=== PATIENT | male | born 1935 | race African-American/Black ===

== ENCOUNTER 2016-08-19 18:56 | Emergency (ER) | payer MEDICARE, MEDICAID ==
[~2016-08-19] VITALS: Ht 185.4 cm; Wt 106.6 kg
[~2016-08-19 18:56] MED LIST: KEFLEX500 MG ORAL; PREDNISONE20 MG ORAL; ZITHROMAX250 MG ORAL
[2016-08-19 19:25] VITALS: BP 165/83
[2016-08-19] MEDS ORDERED: Albuterol ud Inhalation HHN ONE (19:30)
[2016-08-19] MEDS ORDERED: PredniSONE 20mg tab ORAL ONE (19:30)
[2016-08-19] MEDS ORDERED: DuoNeb 0.5-3(2.5)mg/3ml neb HHN ONE (19:30)
[2016-08-19 19:51] LABS: EOSINOPHILS % (AUTO) 12.7 % (0.0-3.0); LYMPHOCYTES % (AUTO) 22.6 % (20.0-45.0); MEAN CORPUSCULAR HEMOGLOBIN 32.4 PG (27.0-31.0); MEAN CORPUSCULAR HGB CONC 34.1 G/DL (32.0-36.0); MEAN CORPUSCULAR VOLUME 95 FL (80-99); MEAN PLATELET VOLUME 6.4 FL (6.5-10.1); MONOCYTES % (AUTO) 9.5 % (1.0-10.0); NEUTROPHILS % (AUTO) 54.3 % (45.0-75.0); PLATELET COUNT 233 K/UL (150-450); RED BLOOD COUNT 3.71 M/UL (4.70-6.10); RED CELL DISTRIBUTION WIDTH 12.5 % (11.6-14.8)
[2016-08-19 20:11] LABS: ALANINE AMINOTRANSFERASE 19 U/L (3-41); ALBUMIN/GLOBULIN RATIO 1.3 (1.0-2.7); ANION GAP 16 (5-15); ASPARTATE AMINO TRANSFERASE 19 U/L (5-40); CALCIUM 9.4 mg/dL (8.6-10.2); CARBON DIOXIDE 22 mEQ/L (20-30); CHLORIDE 102 mEQ/L (98-107); HEMOLYSIS 8; POTASSIUM 4.3 mEQ/L (3.4-4.9); SODIUM 140 mEQ/L (135-145); TOTAL PROTEIN 6.7 g/dL (6.6-8.7)
[2016-08-19] MEDS ORDERED: ALBUTEROL SULF8.5 GM INH (20:19)
[2016-08-19] MEDS ORDERED: PREDNISONE20 MG ORAL (20:19)
[2016-08-19 20:40] VITALS: BP 148/80
--- NOTE | 2016-08-19 22:05 | Emergency Room Report ---
History of Present Illness General Chief Complaint: Upper Respiratory Illness Source: Patient Present Illness HPI Patient is a 80-year-old male who had a history of asthma. The patient presented for shortness of breath. Patient gradual onset of symptoms over the past 3 weeks. Patient had not had any improved the patient had not been any fevers. He had not been a having any productive cough the patient had previously been taking Advair as well as albuterol. He denied any chest pain or leg swelling. Patient denied any worsening with supine position. Allergies: Coded Allergies: AMLODIPINE (Verified Allergy, Mild, RASH, 06/18/09) ATORVASTATIN (Verified Allergy, Unknown, 06/20/09) Patient History Past Medical History: asthma Reviewed Nursing Documentation: PMH: Agreed, PSxH: Agreed Nursing Documentation-PMH Past Medical History: No History, Except For Hx Hypertension: Yes Hx Asthma: Yes Review of Systems All Other Systems: negative except mentioned in HPI Physical Exam Vital Signs Date Time Temp Pulse Resp B/P Pulse Ox O2 Delivery O2 Flow Rate FiO2 08/19/16 19:03 98.2 93 16 171/98 96 Room Air 08/19/16 19:39 21 Sp02 EP Interpretation: reviewed, normal General Appearance: normal inspection, well appearing, no apparent distress, alert, GCS 15 Head: atraumatic ENT: normal ENT inspection, hearing grossly normal, normal voice Neck: normal inspection, full range of motion, supple, no bony tend Respiratory: normal inspection, no retraction Cardiovascular #1: regular rate, rhythm, no edema Gastrointestinal: normal inspection, normal bowel sounds, non tender, soft, no guarding, no hernia Genitourinary: no CVA tenderness Musculoskeletal: normal inspection, back normal, normal range of motion Neurologic: normal inspection, alert, oriented x3, responsive, manufacturing process technician III-XII nml as tested, motor strength/tone normal, speech normal Psychiatric: normal inspection, judgement/insight normal, mood/affect normal Skin: normal inspection, normal color, no rash Medical Decision Making Diagnostic Impression: Primary Impression: Acute asthma exacerbation ER Course Patient presented for shortness of breath. Differential included but was not limited to anemia, pneumonia, pneumothorax, myocardial infarction, pericardial effusion, congestive heart failure, acidosis. Because of complexity of patient' s case laboratory testing and imaging studies were ordered. EKG interpreted by me showed normal sinus rhythm without acute ST or T wave changes. Laboratory testing was unremarkable. Patient given prescription for steroids. He was given breathing treatment in the emergency department with improvement. The patient is advised to follow up with primary care doctor in 1-2 days. Patient is advised to return if any worsening condition or if any changes in status that are concerning. Labs Test 08/19/16 19:30 White Blood Count 8.0 K/UL (4.8-10.8) Red Blood Count 3.71 M/UL (4.70-6.10) Hemoglobin 12.0 G/DL (14.2-18.0) Hematocrit 35.2 % (42.0-52.0) Mean Corpuscular Volume 95 FL (80-99) Mean Corpuscular Hemoglobin 32.4 PG (27.0-31.0) Mean Corpuscular Hemoglobin Concent 34.1 G/DL (32.0-36.0) Red Cell Distribution Width 12.5 % (11.6-14.8) Platelet Count 233 K/UL (150-450) Mean Platelet Volume 6.4 FL (6.5-10.1) Neutrophils (%) (Auto) 54.3 % (45.0-75.0) Lymphocytes (%) (Auto) 22.6 % (20.0-45.0) Monocytes (%) (Auto) 9.5 % (1.0-10.0) Eosinophils (%) (Auto) 12.7 % (0.0-3.0) Basophils (%) (Auto) 1.0 % (0.0-2.0) Sodium Level 140 mEQ/L (135-145) Potassium Level 4.3 mEQ/L (3.4-4.9) Chloride Level 102 mEQ/L (98-107) Carbon Dioxide Level 22 mEQ/L (20-30) Anion Gap 16 (5-15) Blood Urea Nitrogen 17 mg/dL (7-23) Creatinine 1.0 mg/dL (0.7-1.2) Estimat Glomerular Filtration Rate mL/min (>60) Glucose Level 90 mg/dL (74-106) Calcium Level 9.4 mg/dL (8.6-10.2) Total Bilirubin 0.3 mg/dL (0.0-1.2) Aspartate Amino Transf (AST/SGOT) 19 U/L (5-40) Alanine Aminotransferase (ALT/SGPT) 19 U/L (3-41) Alkaline Phosphatase 51 U/L (40-129) Pro-B-Type Natriuretic Peptide 98 pg/mL (0-450) Total Protein 6.7 g/dL (6.6-8.7) Albumin 3.9 g/dL (3.5-5.2) Globulin 2.8 g/dL Albumin/Globulin Ratio 1.3 (1.0-2.7) Last Vital Signs Date Time Temp Pulse Resp B/P Pulse Ox O2 Delivery O2 Flow Rate FiO2 08/19/16 20:40 98.4 80 16 148/80 100 Room Air 08/19/16 20:40 21 Status: improved Disposition: HOME, SELF-CARE Condition: Stable Scripts Albuterol Sulfate* (ALBUTEROL SULFATE MDI*) 8.5 Gm Hfa.aer.ad 2 PUFF INH Q6H, #1 INH 0 Refills Prov: Cheng Kirby 08/19/16 Prednisone* (PREDNISONE*) 20 Mg Tablet 40 MG ORAL DAILY, #10 TAB Prov: Cheng Kirby 08/19/16 Referrals: RAFAEL OQUENDO (PCP) Patient Instructions: Asthma, Adult Cheng Kirby Aug 19, 2016 22:05
--- NOTE | 2016-08-20 13:34 | Diagnostic Imaging Report ---
Indication: Shortness of breath Technique: Single portable AP view of the chest. Findings: Comparison: 10/11/2014 Pleural-based linear density again noted in the lateral aspect of the right lung base. The bones and extra pulmonary soft tissues, cardiomediastinal silhouette, pulmonary vasculature and parenchyma, and pleural surfaces remain otherwise unremarkable. IMPRESSION: Persistent subsegmental atelectasis versus scarring right lung base Otherwise negative portable AP chest, unchanged.
== END 2016-08-19 20:40 | disposition home or self-care (01) ==
LOC: EMR 19:26
DX: J45.901 Unspecified asthma with (acute) exacerbation (principal); Z88.8 Allergy status to other drugs, medicaments and biological substances; I10 Essential (primary) hypertension
CPT/HCPCS: 36415; 71010; 80053; 83880; 85025; 87040; 93005; 94640; 94664; 99284; J7620

== ENCOUNTER 2018-05-06 12:47 | Outpatient (CLI) | payer MEDICARE, MEDICAID ==
[~2018-05-06 12:47] MED LIST changes: +ALBUTEROL SULF8.5 GM INH
--- NOTE | 2018-05-07 15:49 | Diagnostic Imaging Report ---
Indication: Dyspnea Comparison: 08/19/2016 2 views of the chest obtained. Findings: Lungs are clear. Heart size is normal. The aorta is mildly ectatic. Bones are osteopenic. There are probable old rib fractures on the right. IMPRESSION: No acute disease
== END 2018-05-06 14:47 | disposition home or self-care (01) ==
LOC: RAD 12:47
DX: Z01.818 Encounter for other preprocedural examination (principal); I10 Essential (primary) hypertension; M85.80 Other specified disorders of bone density and structure, unspecified site
CPT/HCPCS: 71046

== ENCOUNTER 2018-05-17 05:18 | Inpatient (IN) | payer MEDICARE, MEDICAID ==
[~2018-05-17] VITALS: Ht 185.4 cm; Wt 100.0 kg
[2018-05-17] VITALS (15 sets, daily range): BP systolic 113–158; BP diastolic 65–114
[2018-05-17] MEDS ORDERED: oxyCONTIN 20mg tab ORAL ONE (06:00)
[2018-05-17] MEDS ORDERED: celeBREX 200mg Cap **SURGERY PATIENTS ONLY ORAL ONE (06:00)
[2018-05-17] MEDS ORDERED: ceFAZolin 1gm IVPB IVPB ONE ×2 (06:00)
[2018-05-17] MEDS ORDERED: DILTIAZEM 24HR120 M2 PO (06:40)
[2018-05-17] MEDS ORDERED: AVAPRO300 MG ORAL (06:40)
[2018-05-17] MEDS ORDERED: ELIQUIS5 MG PO (06:40)
[2018-05-17] MEDS ORDERED: AVODART0.5 MG ORAL (06:40)
[2018-05-17] MEDS ORDERED: MONTELUKAST SOD10 MG ORAL (06:40)
[2018-05-17] MEDS ORDERED: SYMBICORT 16010.2 G1 IH (06:40)
[2018-05-17] MEDS ORDERED: TAMSULOSIN HCL0.4 MG ORAL (06:40)
[2018-05-17] MEDS ORDERED: fentaNYL 100 mcg/2 mL IV ONE (06:51)
[2018-05-17] MEDS ORDERED: Midazolam 2mg/2ml Inj ONE (06:51)
--- NOTE | 2018-05-17 06:54 | Pre-Procedure Note/Attestation ---
Pre-Procedure Note/Attestation Complete Prior to Procedure Planned Procedure: right Procedure Narrative: rt total knee arthroplasty Indications for Procedure Pre-Operative Diagnosis: rt knee arthritis Attestation I attest that I discussed the nature of the procedure; its benefits; risks and complications; and alternatives (and the risks and benefits of such alternatives ), prior to the procedure, with the patient (or the patient's legal retention representative). I attest that, if there was a reasonable possibility of needing a blood transfusion, the patient (or the patient's legal retention representative) was given the [facility] standardized written summary, pursuant to the Michael Gray Blood Safety Act ([place] Health and Safety Code # 1645, as amended). I attest that I re-evaluated the patient just prior to the surgery and that there has been no change in the patient's H&P, except as documented below: none Ross Enriquez MD May 17, 2018 06:54
[2018-05-17] MEDS ORDERED: Bacitracin 50000 Units Vial ONE (07:03)
[2018-05-17] MEDS ORDERED: NeoSporin Gu Irrig 1ml Amp IRRIG ONE (07:03)
[2018-05-17] MEDS ORDERED: Lidocaine 1% MPF 10mg/ml 5ml ONE (07:10)
[2018-05-17] MEDS ORDERED: Propofol 200mg/20ml IV ONE (07:10)
[2018-05-17] MEDS ORDERED: EPINEPHrine 1mg/1ml Amp ONE (07:12)
[2018-05-17] MEDS ORDERED: Tranexamic Acid 1,000 MG in NS 55 ML IV ONE (07:15)
[2018-05-17] MEDS ORDERED: Bupivacaine 0.5% 10ml INJ ONE (07:17)
[2018-05-17] MEDS ORDERED: LR 1000ml ONE (07:40)
[2018-05-17] MEDS ORDERED: NS Irrig 1000ml ONE (07:40)
[2018-05-17] MEDS ORDERED: Sterile Water Irrig 1000ml IRRIG ONE (07:40)
[2018-05-17] MEDS ORDERED: Sodium Chloride 10ml vial INJ ONE (08:32)
[2018-05-17] MEDS ORDERED: ePHEDrine 50mg/ml Inj ONE (08:32)
[2018-05-17] MEDS ORDERED: DiphenhydrAMINE 50mg/ml Inj IVP PRN (09:00)
[2018-05-17] MEDS ORDERED: Morphine Sulfate 2mg/ml Inj(IV/IM USE ONLY) IVP PRN (09:00)
[2018-05-17] MEDS ORDERED: LR 1000ml 1,000 ML IVLG SCH (09:00)
[2018-05-17] MEDS ORDERED: Ketorolac 30mg Inj IV PRN (09:00)
--- NOTE | 2018-05-17 09:00 | Anethesia Preoperative Eval ---
Anesthesia Pre-op PMH/ROS General Date of Evaluation: May 17, 2018 Time of Evaluation: 07:20 Anesthesiologist: Raza ASA Score: ASA 2 Mallampati Score Class I : Soft palate, uvula, fauces, pillars visible Class II: Soft palate, uvula, fauces visible Class III: Soft palate, base of uvula visible Class IV: Only hard plate visible Mallampati Classification: Class II Surgeon: Mina Diagnosis: R knee DJD Surgical Procedure: R knee arthroplasty Anesthesia History: none Family History: no anesthesia problems Allergies: Coded Allergies: ATORVASTATIN (Verified Allergy, Severe, 05/17/18) SKIN RASH AMLODIPINE (Verified Allergy, Mild, RASH, 06/18/09) Medications: see eMAR Patient NPO?: Yes NPO Date: May 16, 2018 NPO Time: 2199 Past Medical History Cardiovascular: Reports: HTN; Denies: CAD, NC, valve dz, arrhythmia, other Pulmonary: Reports: asthma - mild stable on inhalers; Denies: COPD, CHAUNCEY, other Gastrointestinal/Genitourinary: Reports: GERD; Denies: CRI, ESRD, other Neurologic/Psychiatric: Denies: dementia, CVA, depression/anxiety, TIA, other Endocrine: Denies: DM, hypothyroidism, steroids, other HEENT: Denies: cataract (L), cataract (R), glaucoma, [place] (L), [place] (R), other Hematology/Immune: Denies: anemia, DVT, bleeding disorder, other Musculoskeletal/Integumentary: Reports: DJD; Denies: OA, RA, DDD, edema, other PMH Narrative: as above PSxH Narrative: L knee arthroplasty, hernia repair Anesthesia Pre-op Phys. Exam Physician Exam Last Vital Signs Date Time Temp Pulse Resp B/P (MAP) Pulse Ox O2 Delivery O2 Flow Rate FiO2 05/17/18 07:06 97.8 73 20 158/84 (108) 99 05/17/18 06:19 Room Air Constitutional: NAD Neurologic: CN 2-12 intact Cardiovascular: RRR, no M/R/G Gastrointestinal: S/NT/ND Airway Exam Mallampati Score: Class II MO: limited Neck: stiff ROM: limited Teeth: missing Dentures: no upper, no lower Anesthesia Pre-op A/P Labs Coagulation Test 05/17/18 06:15 Prothrombin Time 10.7 SEC (9.30-11.50) Prothromb Time International Ratio 1.0 (0.9-1.1) See chart for rest of the results. Studies Pre-op Studies: EKG - Sinus arrhytmia Risk Assessment & Plan Assessment: ASA 2 Plan: R femoral nerve block for post op pain control, SAB considering length of the procedure mild GA with LMA would be the appropriate level of sedation. Status Change Before Surgery: No Pre-Antibiotics Drug: Ancef 2gr. Given Within 1 Hr of Incision: Yes Time Given: 08:20 Washington Person MD May 17, 2018 09:00
--- NOTE | 2018-05-17 10:28 | Brief Operative Note ---
Immediate Post Operative Note Operative Note Chief Complaint: Rt knee arthritis Pre-op Diagnosis: rt knee arthritis Procedure: rt total knee arthroplasty Post-op Diagnosis: same as pre-op Findings: consistent w/pre-op dx studies Surgeon: md deanna Academic Services Professional: jackson mcarthur Anesthesiologist: md jose Anesthesia: general Specimen: yes Complications: none Condition: stable Fluids: ns Estimated Blood Loss: minimal Drains: none Implant(s) used?: Yes - Candida Escobar May 17, 2018 10:28
--- NOTE | 2018-05-17 10:39 | Immediate Post-Op Evaluation ---
Immediate Post-Op Evalulation Immediate Post-Op Evalulation Procedure: R total knee arthroplasty Date of Evaluation: May 17, 2018 Time of Evaluation: 10:38 IV Fluids: 1800 Blood Products: none Estimated Blood Loss: 150 Urinary Output: 150 Blood Pressure Systolic: 122 Blood Pressure Diastolic: 67 Pulse Rate: 65 Respiratory Rate: 20 O2 Sat by Pulse Oximetry: 98 Temperature (Fahrenheit): 97.7 Pain Score (1-10): 1 Nausea: No Vomiting: No Complications none Patient Status: reacts, patent, none Hydration Status: adequate Washington Person MD May 17, 2018 10:39
--- NOTE | 2018-05-17 11:45 | NUR ---
NURSE NOTES: Patient arrived to unit at 1130 am via bed in supine position, O2 3LNC, no respiratory distress. IVF LR infusing to gravity to LH, site asymptomatic. Patient alert, oriented x4, calm. Mcarthur patent in place/draining to gravity. Right lower extremity, eleanor hose in place, dressing clean/dry/intact, ice pack to right knee. Left SCD on. No complains of pain/SOB/NV at this time. IS ordered. Will continue to assess.
--- NOTE | 2018-05-17 12:00 | NUR ---
RESPIRATORY NOTE: IS left bedside. patient is sleeping and is on nasal cannula @2L/min 28%. notified Thiago PIPER.
--- NOTE | 2018-05-17 12:03 | Diagnostic Imaging Report ---
Indication: Status post right total knee replacement Comparison: None Findings: Cemented total knee arthroplasty demonstrated. Soft tissue swelling and air about the surgical site noted. Alignment and position of the prosthesis is unremarkable. IMPRESSION: Status post right total knee arthroplasty
[2018-05-17] MEDS ORDERED: Albuterol 90mcg Inhaler 8gm INH PRN (13:00)
[2018-05-17] MEDS ORDERED: Milk of Magnesia 30ml Ud ORAL PRN ×2 (13:00→19:00)
[2018-05-17] MEDS ORDERED: HYDROcodone/Acetamin 7.5/325 tab ORAL PRN ×2 (13:00→21:00)
[2018-05-17] MEDS ORDERED: HYDROcodone/Acetamin 5/325 tab ORAL PRN (13:00)
[2018-05-17] MEDS ORDERED: HYDROmorphone 1mg/ml Carpuject SUBQ PRN ×3 (13:00→19:00)
[2018-05-17] MEDS ORDERED: D5 1/2NS w/KCl 20mEq 1,000 ML IV SCH (13:30)
[2018-05-17] MEDS: Docusate 100mg cap ORAL SCH ×2 (13:59→17:33)
--- NOTE | 2018-05-17 15:55 | NUR ---
CASE MANAGEMENT: REVIEW 82/M BIBA DIRECT ADMIT FROM HOME CC: RIGHT KNEE ARTHRITIS SI: RIGHT KNEE ARTHRITIS RIGHT TOTAL KNEE ARTHROPLASTY 05/17 T 97.0 HR 69 RR 20 BP 158/84 SAT 100% SIMPLE MASK 6.0 PT 10.7 INR 1.0 IS: GABAPENTIN PO X1 OXYCONTIN PO X1 CELEBREX PO X1 VERSED PO X1 FENTANYL IV X1 ANCEF IV X1 LACTATED RINGER'S IV X1 INTERQUAL CRITERIA MET: PATIENT ADMITTED TO MED/SURG UNIT 05/17/2018 DCP: PATIENT IS FROM HOME
[2018-05-17] MEDS ORDERED: ceFAZolin sod 1 GM in D5W 55 ML IV SCH (16:00)
--- NOTE | 2018-05-17 16:30 | NUR ---
NURSE NOTES: Patient vitals completed every 30 mins x2, every 1 hour x1, then every 4 hours. Vitals stable. Patient alert, oriented x4, pleasant. O2 saturations on RA 98%, oxygen 3LNC off, but remains at the bedside. Patient denies NV, pain. CPM at 60 degrees. RLE warm, CMS+, denies numbness or tingling, able to wiggle toes, capillary refill <3 seconds. Mcarthur draining yellow clear urine to gravity. IVF D5.45 NS with 20 meq KCL infusing to left hand at 75 ml/hr, Ancef IVPB administered as ordered, no reaction. Patient tolerating oral liquids, diet advanced to regular. Will continue to assess.
--- NOTE | 2018-05-17 17:00 | NUR ---
NURSE NOTES: Per Dr. Olivas, transfer patient to TELE for monitoring. Parameters for Avapro and Cardiazem hold if SBP <110 mmHg. Parameters for Cardiazem hold if HR <55 bpm. Call surgeon for clarification on Eliquis and Lovenox. Will call Dr. Enriquez for further orders.
--- NOTE | 2018-05-17 17:08 | Cardiac Electrophysiology PN ---
Subjective Subjective [id number] Objective Last 24 Hour Vital Signs Date Time Temp Pulse Resp B/P (MAP) Pulse Ox O2 Delivery O2 Flow Rate FiO2 05/17/18 11:15 97.2 63 20 131/80 100 Nasal Cannula 3 05/17/18 11:10 65 18 125/79 100 Nasal Cannula 3 05/17/18 11:05 69 17 113/81 100 Nasal Cannula 3 05/17/18 10:50 65 19 120/79 100 Nasal Cannula 3 05/17/18 10:45 66 22 121/78 100 Simple Mask 6 05/17/18 10:40 70 17 124/74 100 Simple Mask 6 05/17/18 10:39 65 20 98 05/17/18 10:35 97.0 69 20 122/75 100 Simple Mask 6 05/17/18 07:06 97.8 73 20 158/84 (108) 99 05/17/18 06:19 Room Air Laboratory Tests Test 05/17/18 06:15 Prothrombin Time 10.7 SEC (9.30-11.50) Prothromb Time International Ratio 1.0 (0.9-1.1) Jaylen Lind MD May 17, 2018 17:08
--- NOTE | 2018-05-17 17:50 | NUR ---
NURSE NOTES: Spoke with Dr. Enriquez regarding clarification on Eliquis and Lovenox, instructed to call Dr. Saravia for further orders. Will follow up with Dr. Saravia.
[2018-05-17] MEDS ORDERED: Eliquis 2.5mg tablet ORAL SCH (18:00)
--- NOTE | 2018-05-17 18:05 | NUR ---
NURSE NOTES: Spoke with Dr. Saravia, orders to discontinue Eliquis, keep Lovenox as ordered and labs (CBC/CMP) for tomorrow 05/18/2018, morning. Orders placed. Will endorse to TELE with transfer/report.
--- NOTE | 2018-05-17 18:45 | NUR ---
NURSE NOTES: Patient transferred to [facility] 210-2 via bed with all belongings, CPM, RLE brace, SCD, chart, labels, IVF (D5.45 NS with 20 MEQ KCL) x2 bags, Ancef IVPB x1 bag. Report given to Renee PIPER on 2E. Patient alert, oriented x4, aware of transfer, all belongings reviewed with Renee PIPER. Tolerating clear liquids, total oral intake 720 mls. Mcarthur draining to gravity, (emptied 950 ml yellow clear urine prior to transfer) IVF in place as ordered, to left hand, site asymptomatic. Right knee dressing clean, dry, intact, ice pack in place. LLE SCD on. Patient on RA. Cough noted with clear sputum, encouraged IS. Vitals stable. Patient remains safe.
[2018-05-17] MEDS: D5 1/2NS w/KCl 20mEq 1,000 ML IV SCH ×2 (19:00→19:49)
--- NOTE | 2018-05-17 19:00 | Consultation ---
DATE OF CONSULTATION: 05/17/2018 CARDIOLOGY CONSULTATION CONSULTING PHYSICIAN: Jaylen Lind M.D. REFERRING PHYSICIAN: Nikunj Saravia M.D. REASON FOR CONSULTATION: Bradycardia and the patient with history of atrial fibrillation. HISTORY OF PRESENT ILLNESS: The patient is an 82-year-old gentleman with history of hypertension, paroxysmal atrial fibrillation, on Eliquis as an outpatient, who was admitted as an outpatient for right knee arthritis and underwent right total knee arthroplasty by Dr. Enriquez. Reportedly, the patient has bradycardic episodes with heart rate down to 40s. Cardiology consultation was obtained for further evaluation and management. At the time of my evaluation, the patient denies any chest pain, palpitation, or shortness of breath. REVIEW OF SYSTEMS: Negative other than what was mentioned in history of present illness. PAST MEDICAL HISTORY: 1. Hypertension. 2. Paroxysmal atrial fibrillation. 3. Degenerative joint disease. MEDICATIONS: At home, albuterol, Eliquis 5 mg b.i.d., Symbicort, Cardizem CD 120 mg daily, Avodart, Avapro 300 mg daily, and Flomax. PHYSICAL EXAMINATION: VITAL SIGNS: Show blood pressure is 131/80, pulse 63, respirations 18, and temperature 97.2. HEAD AND NECK: Showed no JVD. LUNGS: Clear. CARDIOVASCULAR: Shows regular S1 and S2 with no gallop or murmur. ABDOMEN: Soft. EXTREMITIES: Status post right knee surgery. LABORATORY AND DIAGNOSTIC DATA: His laboratories show INR of 1. His BUN is 14, creatinine is 1, sodium 141, potassium 4.7. White count is 5.4, hemoglobin 12.7, hematocrit 39.1. His 12-lead EKG showed sinus rhythm, rate of 74, first-degree AV block. ASSESSMENT AND PLAN: 1. History of paroxysmal atrial fibrillation. Currently, we will get an EKG and transfer to telemetry for watching in view of risk of postop atrial fibrillation. The patient would be resumed on Cardizem CD 120 mg daily as well as Eliquis 5 mg b.i.d. if okay from surgical perspective. 2. Hypertension. Continue Cardizem and Avapro 300 mg daily. 3. Status post right knee arthroplasty. 4. Benign prostatic hypertrophy, on Proscar. 5. COPD, on Symbicort. Thank you very much, Dr. Saravia, for allowing me to participate in the care of this patient. Please do not hesitate to contact me for any questions regarding my evaluation. Jaylen Lind M.D. DR: Corbin JOB#: [id number] CC:
--- NOTE | 2018-05-17 19:00 | NUR ---
NURSE NOTES: Patient transferred from [facility], patient arrived to floor at 1835 in stable condition. Belonging checked with VERONIQUE Clayton. Report given by Matilde Patient is resting in bed, no signs and symptoms of acute distress at this time. Breathing unlabored in room air. Ice Pack on the right knee.Bed locked and in low position, side rails up X2, call light and bed side table within reach. Will continue to monitor and follow plan of care
--- NOTE | 2018-05-17 19:48 | NUR ---
NURSE NOTES: Received report from VERONIQUE Duran. Patient is awake lying semi-monte's; resting comfortably. No signs of acute distress noted; denies pain at this time. AOx4; able to make needs known. Checked IV site, lines, and IV rate; patent and running. No erythema, bleeding, or infiltration noted. Right leg immobilizer in place and KERRY hose with ice pack applied. Mcarthur catheter draining well to gravity. Bed at lowest position, brakes on, siderails up x3. Call light within reach. Will continue to monitor.
[2018-05-17] MEDS ORDERED: Tamsulosin 0.4mg cap ORAL SCH (21:00)
[2018-05-17] MEDS ORDERED: Enoxaparin 30mg Inj SUBQ SCH (21:00)
[2018-05-17] MEDS: Enoxaparin 30mg Inj SUBQ SCH (21:14)
[2018-05-17] MEDS: Tamsulosin 0.4mg cap ORAL SCH (21:14)
--- NOTE | 2018-05-17 21:15 | Operative Note - Dictated ---
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 PROCEDURE: Right total knee arthroplasty using a [place] triathlon system, size 8 femur, size 7 tibial insert, 9 mm ultra cross-linked tibial insert, and 11 mm x 39 mm all poly patellar component. SURGEON: Ross Enriquez M.D. MASTER COOK: Candida See PA-C. ANESTHESIOLOGIST: [place] Person M.D. ANESTHESIA: Spinal anesthesia. ESTIMATED BLOOD LOSS: Less than 100 mL. TOURNIQUET TIME: 84 minutes. COMPLICATIONS: None. BRIEF HISTORY: The patient is a very pleasant 82-year-old gentleman who has had ongoing right knee pain. He had a left total knee arthroplasty done approximately seven to eight years ago and he did very well with it. He has had ongoing right knee pain, decreased range of motion, stiffness, and inability to walk more than a block. He has been treated with injections and physical therapy and he continues to be symptomatic. After full discussion of risks and benefits of surgery including infection, bleeding, neurovascular complication, possibility of DVT, possibility of PE, possibility of loss of motion, possible infection requiring resection of prosthesis and further surgery, possible wound complications, need for further surgery, possibility of other issues that may arise that are now foreseen, he opted for surgical treatment as described above. OPERATIVE PROCEDURE: The patient was brought to the operating table and was placed supine. All pressure points were well padded. Spinal anesthesia was induced and the right knee was prepped and draped in the usual sterile fashion. The right leg was then exsanguinated and tourniquet was inflated to 275 mmHg. Standard anterior approach to the knee was undertaken. Medial parapatellar arthrotomy was performed. The patella was everted. Deep fibers of the MCL were released. The knee was then flexed and the fat pad was removed. The ACL and PCL were removed. At this point, entry was gained into the intramedullary aspect of the femur and the intramedullary guide was placed in. The patient did have a flexion contracture of about 7 degrees prior to surgery. Therefore, an optional extra 2 mm of distal femoral cut was performed to regain extension. The distal cut was completed and sizing of the femur was performed, size 8 appeared to be the right size. The femur was placed in about 3 degrees external rotation, judging from intercondylar axis. It should be noted that there was a wear on the lateral side and care was given not to internally rotate the prosthesis. Once the guide was placed in 3 degrees external rotation, the cutting block was applied. The anterior, posterior, and chamfer cuts were performed without any complications. At this point, a trial femur was applied and appeared to fit perfectly. This was slightly lateralized and peg holes were drilled. At this point, care was given to the tibial side. The extramedullary guide was used. The anterior crest of the tibia was palpated and marked. At this point, intramedullary guide was then applied and the slope was recreated and 2 mm was taken off the most involved side, which was the lateral side. The patellar tendon was protected and posterior medial and lateral structures were protected with retractors and the tibial cut was performed without any complication. At this point, the flexion-extension gap was checked and appeared to be slightly tight on the lateral side. Therefore, a limited IT band release was performed, which balanced the knee. At this point, the flexion-extension gap was perfect and equal and there was great stability. At this point, the tibial sizing was performed and size 7 tibia appeared to be the right size 8. It was placed in about 3 degrees external rotation and the tibial PEG was then punched without any complications. Once this was completed, care was given to the patellar component. The patella was everted and measured 24 mm. At this point, a standard patellar cut was performed without any complication. The remaining patella was 14 mm. At this point, the patellar component PEG holes were then drilled and 39 mm patella appeared to be the right size. The 39 mm patella was then placed in with excellent fit. At this point, all trial components including tibial component, femoral component as well as patellar components were applied and a 9 mm trial poly insert was applied. The entire construct was reduced. There was full extension and 130 degrees of flexion. There was excellent stability to varus and valgus stressing at 0, 30 degrees, 45 degrees, and 90 degrees. The knee was balanced. At this point, all wounds were thoroughly irrigated using copious amount of fluid. All excess bone and posterior osteophytes were removed. The trial components were removed and knee was thoroughly irrigated. At this point, cement was mixed and the tibial component, femoral component, and patellar components were all cemented without any complication and all excess cement was removed. Once this was completed, a 9 mm insert was placed and the femoral and tibial components were compressed. The compression was applied on the patella until the cement was hardened. Once cement had hardened, compression was removed from patella as well as the femoral and tibial component and trialing was performed. There was excellent range of motion and stability as described previously and there was full extension and full flexion. At this point, a trial component of tibial insert was removed and the tibial tray was thoroughly irrigated. All excess cement and bone fragments were removed. Simpulse irrigation was used and subsequently, a 9 mm ultra cross-linked polyethylene was then locked in without complication. The entire construct was reduced and range of motion, stability, and patellofemoral tracking was rechecked and appeared to be perfect. At this point, the tourniquet was deflated. There was minimal bleeding. The extensor mechanism was closed using #1 Vicryl suture. The subcutaneous tissue was closed using 2-0 Vicryl suture and skin was closed using 3-0 Monocryl suture. Dermabond was applied and sterile dressing was applied and the patient was taken to the recovery room in stable condition. All lap counts and instrument counts were correct. Ross Enriquez M.D. DR: ELLA JOB#: [id number] CC: BRIAN
--- NOTE | 2018-05-17 22:15 | History and Physical Report ---
DATE OF ADMISSION: 05/17/2018 HISTORY OF PRESENT ILLNESS: The patient is a very pleasant 82-year-old gentleman who was admitted by Dr. Enriquez today and underwent right total knee arthroplasty for right knee arthritis. The patient is seen postoperatively. The patient prior to the procedure had heart rate in the 40s, asymptomatic, no chest pain, no shortness of breath. He does has a history of atrial fibrillation as well and he is on medications. The patient is seen postoperative day. Denies any chest pain. No shortness of breath. Denies any dizziness. No abdominal pain. No urinary symptoms. PAST MEDICAL HISTORY: Includes a history of hypertension, history of hyperlipidemia, history of BPH, history of asthma, history of previous knee surgery in 2009, history of influenza, history of asthmatic bronchitis, history of osteoarthritis, history of paroxysmal AFib, history of T11-T12 laminectomy by Dr. Mae secondary to diffuse disc bulge, and history of a CVA. ALLERGIES: Questionable allergy to statin therapy. MEDICATIONS: Please see his reconciled med list. SOCIAL HISTORY: He is a previous smoker, has not smoked in many years. He drinks alcohol socially. Denies any drug use. FAMILY HISTORY: Noncontributory. REVIEW OF SYSTEMS: Twelve-point review of systems reviewed negative except for above. PHYSICAL EXAMINATION: GENERAL: He is well developed, well nourished, currently in no apparent distress. VITAL SIGNS: Revealed a temperature 97.3, pulse 50, blood pressure 118/68, respirations 17, pulse ox 99 to 100% room air. HEENT: Head is normocephalic, atraumatic. Pupils are equal, reactive to light. Extraocular muscles are intact. Eyes are anicteric. NECK: Supple. No JVP. LUNGS: Clear. HEART: Regular. ABDOMEN: Soft. Positive bowel sounds. EXTREMITIES: No clubbing, cyanosis, or edema. Right knee dressing is clean. ASSESSMENT AND PLAN: The patient is a pleasant 82-year-old gentleman who underwent right knee arthroplasty. He does have a history of AFib, paroxysmal. His heart rate was in the 40s apparently preoperatively. Appears to be stable. The patient had his surgery. The patient will be placed on a monitored bed. I have asked Cardiology consultation from Dr. Lind to see him for further evaluation. We will continue his medications from home. The patient should be on anticoagulation. Currently on Lovenox. Consider switching back to Eliquis if okay with Dr. Enriquez. The patient should be on DVT and ulcer prophylaxes. Nikunj Saravia M.D. DR: ANDREWS JOB#: [id number] CC:
[2018-05-18] VITALS: BP 145/78
[2018-05-18] MEDS ORDERED: ceFAZolin sod 1 GM in D5W 55 ML IV SCH ×2
[2018-05-18 04:00] VITALS: BP 133/65
[2018-05-18] MEDS: HYDROcodone/Acetamin 5/325 tab ORAL PRN ×2 (04:18→11:04)
[2018-05-18] MEDS: D5 1/2NS w/KCl 20mEq 1,000 ML IV SCH ×2 (05:47→21:48)
--- NOTE | 2018-05-18 07:00 | NUR ---
NURSE NOTES: D/C'ed Mcarthur catheter as per MD order.
[2018-05-18 07:21] LABS: BASOPHILS % (AUTO) 0.4 % (0.0-2.0); EOSINOPHILS % (AUTO) 0.5 % (0.0-3.0); HEMATOCRIT 31.4 % (42.0-52.0); HEMOGLOBIN 10.9 G/DL (14.2-18.0); MEAN CORPUSCULAR VOLUME 92 FL (80-99); MONOCYTES % (AUTO) 10.2 % (1.0-10.0); NEUTROPHILS % (AUTO) 79.9 % (45.0-75.0); PLATELET COUNT 156 K/UL (150-450); RED CELL DISTRIBUTION WIDTH 11.6 % (11.6-14.8); WHITE BLOOD COUNT 8.8 K/UL (4.8-10.8)
--- NOTE | 2018-05-18 07:47 | NUR ---
HAND-OFF: Report given to VERONIQUE Siu. Patient is awake lying high-monte's eating breakfast; resting comfortably. In stable condition.
--- NOTE | 2018-05-18 07:50 | NUR ---
NURSE NOTES: Received patient from VERONIQUE Nguyen in bed eating breakfast, denies any pain. No s/s of acute distress, no SOB. Noted right leg is immobilized. Bed is in lowest position and locked position for safety. Call light is within reach. Will continue with the plan of care.
[2018-05-18 08:00] VITALS: BP 127/73
[2018-05-18 08:01] LABS: ALANINE AMINOTRANSFERASE 18 U/L (12-78); ALBUMIN 2.7 G/DL (3.4-5.0); ALBUMIN/GLOBULIN RATIO 0.9 (1.0-2.7); ALKALINE PHOSPHATASE 48 U/L (46-116); ANION GAP 6 mmol/L (5-15); ASPARTATE AMINO TRANSFERASE 15 U/L (15-37); BILIRUBIN,TOTAL 0.6 MG/DL (0.2-1.0); BLOOD UREA NITROGEN 12 mg/dL (7-18); CALCIUM 8.3 MG/DL (8.5-10.1); CARBON DIOXIDE 25 MMOL/L (21-32); CHLORIDE 107 MMOL/L (98-107); CREATININE 0.8 MG/DL (0.55-1.30); POTASSIUM 3.8 MMOL/L (3.5-5.1); SODIUM 138 MMOL/L (136-145)
--- NOTE | 2018-05-18 08:18 | Orthopedic Progress Note ---
Orthopedic - Progress Note Subjective Symptoms: improved, other - moved to the [facility] to monitor HR. cardiology called Objective Laboratory Tests Test 05/18/18 05:55 White Blood Count 8.8 K/UL (4.8-10.8) Red Blood Count 3.40 M/UL (4.70-6.10) L Hemoglobin 10.9 G/DL (14.2-18.0) L Hematocrit 31.4 % (42.0-52.0) L Mean Corpuscular Volume 92 FL (80-99) Mean Corpuscular Hemoglobin 31.9 PG (27.0-31.0) H Mean Corpuscular Hemoglobin Concent 34.6 G/DL (32.0-36.0) Red Cell Distribution Width 11.6 % (11.6-14.8) Platelet Count 156 K/UL (150-450) Mean Platelet Volume 5.7 FL (6.5-10.1) L Neutrophils (%) (Auto) 79.9 % (45.0-75.0) H Lymphocytes (%) (Auto) 9.0 % (20.0-45.0) L Monocytes (%) (Auto) 10.2 % (1.0-10.0) H Eosinophils (%) (Auto) 0.5 % (0.0-3.0) Basophils (%) (Auto) 0.4 % (0.0-2.0) Sodium Level 138 MMOL/L (136-145) Potassium Level 3.8 MMOL/L (3.5-5.1) Chloride Level 107 MMOL/L (98-107) Carbon Dioxide Level 25 MMOL/L (21-32) Anion Gap 6 mmol/L (5-15) Blood Urea Nitrogen 12 mg/dL (7-18) Creatinine 0.8 MG/DL (0.55-1.30) Estimat Glomerular Filtration Rate mL/min (>60) Glucose Level 113 MG/DL (74-106) H Calcium Level 8.3 MG/DL (8.5-10.1) L Total Bilirubin 0.6 MG/DL (0.2-1.0) Aspartate Amino Transf (AST/SGOT) 15 U/L (15-37) Alanine Aminotransferase (ALT/SGPT) 18 U/L (12-78) Alkaline Phosphatase 48 U/L (46-116) Total Protein 5.7 G/DL (6.4-8.2) L Albumin 2.7 G/DL (3.4-5.0) L Globulin 3.0 g/dL Albumin/Globulin Ratio 0.9 (1.0-2.7) L Last 24 Hour Vital Signs Date Time Temp Pulse Resp B/P (MAP) Pulse Ox O2 Delivery O2 Flow Rate FiO2 05/18/18 04:00 98.2 87 18 133/65 (87) 97 05/18/18 04:00 82 05/18/18 00:00 80 05/18/18 00:00 98.9 83 18 145/78 (100) 98 05/17/18 21:00 Room Air 05/17/18 20:00 98.1 91 18 144/70 (94) 97 05/17/18 20:00 85 05/17/18 17:00 97.5 69 18 147/114 (125) 100 05/17/18 16:00 97.5 73 19 113/76 (88) 100 05/17/18 14:00 97.5 55 19 133/88 (103) 99 05/17/18 13:00 97.2 53 18 128/65 (86) 99 05/17/18 12:30 97.1 50 18 126/65 (85) 99 05/17/18 12:00 97.3 50 17 118/68 (85) 99 05/17/18 11:15 97.2 63 20 131/80 100 Nasal Cannula 3 05/17/18 11:10 65 18 125/79 100 Nasal Cannula 3 05/17/18 11:05 69 17 113/81 100 Nasal Cannula 3 05/17/18 10:50 65 19 120/79 100 Nasal Cannula 3 05/17/18 10:45 66 22 121/78 100 Simple Mask 6 05/17/18 10:40 70 17 124/74 100 Simple Mask 6 05/17/18 10:39 65 20 98 05/17/18 10:35 97.0 69 20 122/75 100 Simple Mask 6 Intake and Output 05/17/18 05/18/18 18:59 06:59 Intake Total 1665 ml 1023 ml Output Total 300 ml 800 ml Balance 1365 ml 223 ml Intake Oral 240 ml 300 ml IV Total 1425 ml 723 ml Output Urine Total 150 ml 800 ml Estimated Blood Loss 150 ml Laboratory Tests Test 05/18/18 05:55 White Blood Count 8.8 K/UL (4.8-10.8) Red Blood Count 3.40 M/UL (4.70-6.10) L Hemoglobin 10.9 G/DL (14.2-18.0) L Hematocrit 31.4 % (42.0-52.0) L Mean Corpuscular Volume 92 FL (80-99) Mean Corpuscular Hemoglobin 31.9 PG (27.0-31.0) H Mean Corpuscular Hemoglobin Concent 34.6 G/DL (32.0-36.0) Red Cell Distribution Width 11.6 % (11.6-14.8) Platelet Count 156 K/UL (150-450) Mean Platelet Volume 5.7 FL (6.5-10.1) L Neutrophils (%) (Auto) 79.9 % (45.0-75.0) H Lymphocytes (%) (Auto) 9.0 % (20.0-45.0) L Monocytes (%) (Auto) 10.2 % (1.0-10.0) H Eosinophils (%) (Auto) 0.5 % (0.0-3.0) Basophils (%) (Auto) 0.4 % (0.0-2.0) Sodium Level 138 MMOL/L (136-145) Potassium Level 3.8 MMOL/L (3.5-5.1) Chloride Level 107 MMOL/L (98-107) Carbon Dioxide Level 25 MMOL/L (21-32) Anion Gap 6 mmol/L (5-15) Blood Urea Nitrogen 12 mg/dL (7-18) Creatinine 0.8 MG/DL (0.55-1.30) Estimat Glomerular Filtration Rate mL/min (>60) Glucose Level 113 MG/DL (74-106) H Calcium Level 8.3 MG/DL (8.5-10.1) L Total Bilirubin 0.6 MG/DL (0.2-1.0) Aspartate Amino Transf (AST/SGOT) 15 U/L (15-37) Alanine Aminotransferase (ALT/SGPT) 18 U/L (12-78) Alkaline Phosphatase 48 U/L (46-116) Total Protein 5.7 G/DL (6.4-8.2) L Albumin 2.7 G/DL (3.4-5.0) L Globulin 3.0 g/dL Albumin/Globulin Ratio 0.9 (1.0-2.7) L Wound: clean, dry, intact Drains: none Neuro Status: unchanged from pre-op - baseline rt sided foot drop unchanged Vascular Status: normal Additional Comments xray reviewed Assessment Post-op Diagnosis POD 1 Procedure Performed rt total knee arthroplasty Plan Plan: PT, discharge plan - likely home with services and DME wednesday, other - DVT ppx. ok with pt's home eliquis if Dr. Saravia prefers to resume that. Candida Diane May 18, 2018 08:18
[2018-05-18] MEDS ORDERED: Montelukast 10mg tablet ORAL SCH (09:00)
[2018-05-18] MEDS ORDERED: Irbesartan 150mg tablet ORAL SCH (09:00)
[2018-05-18] MEDS ORDERED: dilTIAZem HCl CD 120mg cap ORAL SCH (09:00)
[2018-05-18] MEDS ORDERED: celeBREX 200mg Cap **SURGERY PATIENTS ONLY ORAL SCH (09:00)
[2018-05-18] MEDS: celeBREX 200mg Cap **SURGERY PATIENTS ONLY ORAL SCH (09:07)
[2018-05-18] MEDS: dilTIAZem HCl CD 120mg cap ORAL SCH (09:08)
[2018-05-18] MEDS: Montelukast 10mg tablet ORAL SCH (09:08)
[2018-05-18] MEDS: Docusate 100mg cap ORAL SCH ×3 (09:09→17:49)
[2018-05-18] MEDS: Irbesartan 150mg tablet ORAL SCH (09:09)
[2018-05-18] MEDS: Enoxaparin 30mg Inj SUBQ SCH ×2 (09:10→21:47)
--- NOTE | 2018-05-18 09:21 | NUR ---
CASE MANAGEMENT:REVIEW 05/18/18 SI: POD #1....S/P RT TOTAL KNEE ARTHROPLASTY EPISODES OF BRADYCARDIA...TRANSFERRED TO TELEMETRY 100.7 85 18 127/73 98% ON RA H/H-10.9/31.4 GLUCOSE+113 IS: SYMBICORT INH BID CELEBREX PO QD CARDIZEM PO QD PROSCAR PO QD AVAPRO PO QD SINGULAIR PO QD LOVENOX SQ Q12 IVF@75/HR : NOW ON TELEMETRY DCP: PATIENT IS FROM HOME PLAN: CONTINUOUS CARDIAC MONITORING CARDIAC CONSULT
--- NOTE | 2018-05-18 10:44 | 48 Hour Post Anesthesia Eval ---
Post Anesthesia Evaluation Procedure: R total knee arthroplasty Date of Evaluation: May 18, 2018 Time of Evaluation: 10:57 Blood Pressure Systolic: 127 0: 73 Pulse Rate: 85 Respiratory Rate: 18 Temperature (Fahrenheit): 100.7 O2 Sat by Pulse Oximetry: 98 Airway: patent Nausea: No Vomiting: No Pain Intensity: 3 Hydration Status: adequate Cardiopulmonary Status: Stable Mental Status/LOC: patient returned to baseline Follow-up Care/Observations: 0 Post-Anesthesia Complications: 0 Follow-up care needed: N/A Watson Charles MD May 18, 2018 10:44
--- NOTE | 2018-05-18 11:56 | NUR ---
P.T Note: Pt in stable condition, cleared by PA. P.T evaluation completed and treatment initiated per TKR protocol. Please refer to P.T evaluation for current functional status. Skilled P.T service is warranted to increase strength, endurance, balance and R knee ROM to increase safety and independence in functional mobilities/activities. Patient's plan is to go home with his CG who has been staying with him and assisting him. Recommending Home P.T at DC with DME to include FWW and 3 in 1 bedside commode ( if none ) thank you for this referral.
[2018-05-18 12:00] VITALS: BP 158/75
--- NOTE | 2018-05-18 12:35 | Cardiac Electrophysiology PN ---
Assessment/Plan Assessment/Plan 1. Paroxysmal atrial fibrillation. Post op EKG showed SR with PAC's. On Cardizem CD 120 mg daily as well as Lovenox 2. Hypertension. Continue Cardizem and Avapro 300 mg daily. 3. Status post right knee arthroplasty. 4. Benign prostatic hypertrophy, on Proscar. 5. COPD, on Symbicort. Subjective Subjective Transferred to tele. No CP or SOB. Remained in SR with no atrial fib. Objective Last 24 Hour Vital Signs Date Time Temp Pulse Resp B/P (MAP) Pulse Ox O2 Delivery O2 Flow Rate FiO2 05/18/18 10:44 85 18 98 05/18/18 09:09 127/73 05/18/18 09:08 85 127/73 05/18/18 09:00 Room Air 05/18/18 08:00 100.7 85 18 127/73 (91) 98 05/18/18 07:35 80 05/18/18 04:00 98.2 87 18 133/65 (87) 97 05/18/18 04:00 82 05/18/18 00:00 80 05/18/18 00:00 98.9 83 18 145/78 (100) 98 05/17/18 21:00 Room Air 05/17/18 20:00 98.1 91 18 144/70 (94) 97 05/17/18 20:00 85 05/17/18 17:00 97.5 69 18 147/114 (125) 100 05/17/18 16:00 97.5 73 19 113/76 (88) 100 05/17/18 14:00 97.5 55 19 133/88 (103) 99 05/17/18 13:00 97.2 53 18 128/65 (86) 99 Intake and Output 05/17/18 05/18/18 19:00 07:00 Intake Total 1665 ml 1098 ml Output Total 300 ml 800 ml Balance 1365 ml 298 ml Intake Oral 240 ml 300 ml IV Total 1425 ml 798 ml Output Urine Total 150 ml 800 ml Estimated Blood Loss 150 ml Laboratory Tests Test 05/18/18 05:55 White Blood Count 8.8 K/UL (4.8-10.8) Red Blood Count 3.40 M/UL (4.70-6.10) L Hemoglobin 10.9 G/DL (14.2-18.0) L Hematocrit 31.4 % (42.0-52.0) L Mean Corpuscular Volume 92 FL (80-99) Mean Corpuscular Hemoglobin 31.9 PG (27.0-31.0) H Mean Corpuscular Hemoglobin Concent 34.6 G/DL (32.0-36.0) Red Cell Distribution Width 11.6 % (11.6-14.8) Platelet Count 156 K/UL (150-450) Mean Platelet Volume 5.7 FL (6.5-10.1) L Neutrophils (%) (Auto) 79.9 % (45.0-75.0) H Lymphocytes (%) (Auto) 9.0 % (20.0-45.0) L Monocytes (%) (Auto) 10.2 % (1.0-10.0) H Eosinophils (%) (Auto) 0.5 % (0.0-3.0) Basophils (%) (Auto) 0.4 % (0.0-2.0) Sodium Level 138 MMOL/L (136-145) Potassium Level 3.8 MMOL/L (3.5-5.1) Chloride Level 107 MMOL/L (98-107) Carbon Dioxide Level 25 MMOL/L (21-32) Anion Gap 6 mmol/L (5-15) Blood Urea Nitrogen 12 mg/dL (7-18) Creatinine 0.8 MG/DL (0.55-1.30) Estimat Glomerular Filtration Rate mL/min (>60) Glucose Level 113 MG/DL (74-106) H Calcium Level 8.3 MG/DL (8.5-10.1) L Total Bilirubin 0.6 MG/DL (0.2-1.0) Aspartate Amino Transf (AST/SGOT) 15 U/L (15-37) Alanine Aminotransferase (ALT/SGPT) 18 U/L (12-78) Alkaline Phosphatase 48 U/L (46-116) Total Protein 5.7 G/DL (6.4-8.2) L Albumin 2.7 G/DL (3.4-5.0) L Globulin 3.0 g/dL Albumin/Globulin Ratio 0.9 (1.0-2.7) L Objective HEAD AND NECK: No JVD. LUNGS: Clear. CARDIOVASCULAR: Regular S1 and S2 with no gallop or murmur. ABDOMEN: Soft. EXTREMITIES: Status post right knee surgery. Jaylen Lind MD May 18, 2018 12:35
[2018-05-18 16:00] VITALS: BP 130/69
--- NOTE | 2018-05-18 16:03 | Cardiology Report ---
APPROVED REPORT EXAM: Two-dimensional and M-mode echocardiogram with Doppler and color Doppler. INDICATION POST-OP M-Mode DIMENSIONS IVSd0.8 (0.7-1.1cm)Left Atrium (MM)4.0 (1.6-4.0cm) LVDd6.6 (3.5-5.6cm)Aortic Root3.7 (2.0-3.7cm) PWd1.1 (0.7-1.1cm)Aortic Cusp Exc.2.0 (1.5-2.0cm) IVSs1.4 cm LVDs4.1 (2.5-4.0cm) PWs1.2 cm Normal left ventricular chamber size, systolic function and wall motion . Left ventricular ejection fraction estimated to be 60-65 %. Mild left ventricular hypertrophy by 2-D. Trivial pericardial effusion. All other cardiac chamber sizes are within normal limits. Focal aortic valve sclerosis with adequate cusp excursion. Thickened mitral valve leaflets with normal excursion. Mitral annulus and aortic root calcification. Normal pulmonic valve structure. Normal tricuspid valve structure. IVC at normal size with physiologic collapse. A color flow and spectral Doppler study was performed and revealed: No aortic regurgitation. Mild mitral regurgitation. Mitral diastolic velocities suggest reduced left ventricular relaxation c/w mild LV diastolic dysfunction (Grade I ). Mild tricuspid regurgitation. Tricuspid systolic velocities suggests peak right ventricular systolic pressure of 40 mmHg,consistent with mild pulmonary hypertension.
--- NOTE | 2018-05-18 16:05 | Cardiology Report ---
APPROVED REPORT EKG Measurement Heart [id number] Normal sinus rhythm with sinus arrhythmia Minimal voltage criteria for LVH, may be normal variant Borderline ECG
[2018-05-18] MEDS ORDERED: Albuterol 90mcg Inhaler 8gm INH PRN (19:00)
--- NOTE | 2018-05-18 19:32 | NUR ---
HAND-OFF: Report given to Wendy.Endorsed that the CPM machine be taking out between 8 and 9pm. Patient is in stable condition.
--- NOTE | 2018-05-18 19:41 | NUR ---
NURSE NOTES: Received report from VERONIQUE Siu. Patient is awake lying semi-monte's watching TV; resting comfortably. No signs of acute distress noted; denies pain at this time. AOx4; able to make needs known. Checked IV site, lines, and IV rate; patent and running. No erythema, bleeding, or infiltration noted. CPM machine currently applied to patient's right leg; patient appears to be tolerating well. Urinal at bedside. Bed at lowest position, brakes on, siderails up x3. Call light within reach. Will continue to monitor.
[2018-05-18 20:00] VITALS: BP 143/67
--- NOTE | 2018-05-18 21:34 | General Progress Note ---
Assessment/Plan Assessment/Plan sp knee surgery pafib ho asthma bradycardia hld pain control PT on monitor ed bed on lovenox./ consder changing to elliquis PT ambulate dvt and ulcer prohylaxis Subjective Allergies: Coded Allergies: ATORVASTATIN (Verified Allergy, Severe, 05/17/18) SKIN RASH AMLODIPINE (Verified Allergy, Mild, RASH, 06/18/09) Subjective pain controlled in knee no chest pain or sob Objective Last 24 Hour Vital Signs Date Time Temp Pulse Resp B/P (MAP) Pulse Ox O2 Delivery O2 Flow Rate FiO2 05/18/18 19:42 91 18 97 Room Air 21 05/18/18 19:39 91 18 97 Room Air 21 05/18/18 16:00 82 05/18/18 16:00 97.4 70 18 130/69 (89) 98 05/18/18 12:00 80 05/18/18 12:00 98.7 80 18 158/75 (102) 99 05/18/18 10:44 85 18 98 05/18/18 09:09 127/73 05/18/18 09:08 85 127/73 05/18/18 09:00 Room Air 05/18/18 08:00 100.7 85 18 127/73 (91) 98 05/18/18 07:35 80 05/18/18 04:00 98.2 87 18 133/65 (87) 97 05/18/18 04:00 82 05/18/18 00:00 80 05/18/18 00:00 98.9 83 18 145/78 (100) 98 Intake and Output 05/17/18 05/18/18 19:00 07:00 Intake Total 1665 ml 1098 ml Output Total 300 ml 800 ml Balance 1365 ml 298 ml Intake Oral 240 ml 300 ml IV Total 1425 ml 798 ml Output Urine Total 150 ml 800 ml Estimated Blood Loss 150 ml Laboratory Tests 05/18/18 05:55: White Blood Count 8.8, Red Blood Count 3.40L, Hemoglobin 10.9L, Hematocrit 31.4L , Mean Corpuscular Volume 92, Mean Corpuscular Hemoglobin 31.9H, Mean Corpuscular Hemoglobin Concent 34.6, Red Cell Distribution Width 11.6, Platelet Count 156, Mean Platelet Volume 5.7L, Neutrophils (%) (Auto) 79.9H, Lymphocytes (%) (Auto) 9.0L, Monocytes (%) (Auto) 10.2H, Eosinophils (%) (Auto) 0.5, Basophils (%) (Auto) 0.4, Sodium Level 138, Potassium Level 3.8, Chloride Level 107, Carbon Dioxide Level 25, Anion Gap 6, Blood Urea Nitrogen 12, Creatinine 0.8, Estimat Glomerular Filtration Rate , Glucose Level 113H, Calcium Level 8.3L , Total Bilirubin 0.6, Aspartate Amino Transf (AST/SGOT) 15, Alanine Aminotransferase (ALT/SGPT) 18, Alkaline Phosphatase 48, Total Protein 5.7L, Albumin 2.7L, Globulin 3.0, Albumin/Globulin Ratio 0.9L Height (Feet): 6 Height (Inches): 1.00 Weight (Pounds): 220 General Appearance: WD/WN, no apparent distress Neck: supple Cardiovascular: normal rate Respiratory/Chest: lungs clear Abdomen: soft Objective knee dressed, cleaen neurovascular intact Nikunj Saravia MD May 18, 2018 21:34
[2018-05-18] MEDS: Tamsulosin 0.4mg cap ORAL SCH (21:46)
[2018-05-19] VITALS (7 sets, daily range): BP systolic 119–141; BP diastolic 63–75
--- NOTE | 2018-05-19 03:28 | NUR ---
NURSE NOTES: Patient is asleep lying semi-monte's; resting comfortably. No signs of acute distress or pain noted at this time.
--- NOTE | 2018-05-19 07:08 | NUR ---
HAND-OFF: Report given to VERONIQUE Dill. Patient is awake lying semi-monte's; resting comfortably. In stable condition.
[2018-05-19 07:23] LABS: BASOPHILS % (AUTO) 0.3 % (0.0-2.0); EOSINOPHILS % (AUTO) 1.2 % (0.0-3.0); HEMATOCRIT 28.4 % (42.0-52.0); HEMOGLOBIN 9.7 G/DL (14.2-18.0); LYMPHOCYTES % (AUTO) 9.6 % (20.0-45.0); MEAN CORPUSCULAR VOLUME 93 FL (80-99); MONOCYTES % (AUTO) 9.8 % (1.0-10.0); NEUTROPHILS % (AUTO) 79.1 % (45.0-75.0); PLATELET COUNT 159 K/UL (150-450); RED BLOOD COUNT 3.04 M/UL (4.70-6.10); WHITE BLOOD COUNT 9.2 K/UL (4.8-10.8)
--- NOTE | 2018-05-19 07:41 | NUR ---
NURSE NOTES: pt awake alert, no distress. denies pain. call light within reach. will monitor.
[2018-05-19] MEDS: Irbesartan 150mg tablet ORAL SCH (08:05)
[2018-05-19] MEDS: Montelukast 10mg tablet ORAL SCH (08:05)
[2018-05-19] MEDS: celeBREX 200mg Cap **SURGERY PATIENTS ONLY ORAL SCH (08:05)
[2018-05-19] MEDS: dilTIAZem HCl CD 120mg cap ORAL SCH (08:06)
[2018-05-19] MEDS: Docusate 100mg cap ORAL SCH ×3 (08:06→19:55)
[2018-05-19] MEDS: Enoxaparin 30mg Inj SUBQ SCH ×2 (08:07→21:00)
--- NOTE | 2018-05-19 09:14 | Orthopedic Progress Note ---
Orthopedic - Progress Note Subjective Symptoms: c/o post-op knee pain Additional Comments walking with a walker in the [place] today Objective Last 24 Hour Vital Signs Date Time Temp Pulse Resp B/P (MAP) Pulse Ox O2 Delivery O2 Flow Rate FiO2 05/19/18 08:52 94 20 97 Room Air 21 05/19/18 08:52 90 20 98 Room Air 21 05/19/18 08:06 90 135/63 05/19/18 08:05 135/63 05/19/18 07:38 98.9 90 19 135/63 (87) 97 05/19/18 04:00 98.9 81 19 130/68 (88) 97 05/19/18 04:00 82 05/19/18 00:00 98.6 81 19 141/64 (89) 97 05/19/18 00:00 83 05/18/18 21:00 Room Air 05/18/18 20:00 80 05/18/18 20:00 98.8 87 19 143/67 (92) 97 05/18/18 19:42 91 18 97 Room Air 21 05/18/18 19:39 91 18 97 Room Air 21 05/18/18 16:00 82 05/18/18 16:00 97.4 70 18 130/69 (89) 98 05/18/18 12:00 80 05/18/18 12:00 98.7 80 18 158/75 (102) 99 05/18/18 10:44 85 18 98 Intake and Output 05/18/18 05/19/18 18:59 06:59 Intake Total 835 ml 1200 ml Output Total 1200 ml Balance 835 ml 0 ml Intake Oral 760 ml 360 ml IV Total 75 ml 840 ml Output Urine Total 1200 ml # Voids 3 2 Laboratory Tests Test 05/19/18 06:21 White Blood Count 9.2 K/UL (4.8-10.8) Red Blood Count 3.04 M/UL (4.70-6.10) L Hemoglobin 9.7 G/DL (14.2-18.0) L Hematocrit 28.4 % (42.0-52.0) L Mean Corpuscular Volume 93 FL (80-99) Mean Corpuscular Hemoglobin 31.9 PG (27.0-31.0) H Mean Corpuscular Hemoglobin Concent 34.1 G/DL (32.0-36.0) Red Cell Distribution Width 12.0 % (11.6-14.8) Platelet Count 159 K/UL (150-450) Mean Platelet Volume 6.1 FL (6.5-10.1) L Neutrophils (%) (Auto) 79.1 % (45.0-75.0) H Lymphocytes (%) (Auto) 9.6 % (20.0-45.0) L Monocytes (%) (Auto) 9.8 % (1.0-10.0) Eosinophils (%) (Auto) 1.2 % (0.0-3.0) Basophils (%) (Auto) 0.3 % (0.0-2.0) Wound: clean, dry, intact Neuro Status: unchanged from pre-op Vascular Status: normal Assessment Post-op Diagnosis s/p Right TKA POD2 Plan Plan: PT, discharge plan, discharge to home Additional Comments Dressing changes today Transfer to if ok with Dr. Saravia and Ross Joy MD May 19, 2018 09:14
[2018-05-19] MEDS: D5 1/2NS w/KCl 20mEq 1,000 ML IV SCH (11:21)
--- NOTE | 2018-05-19 11:21 | NUR ---
HAND-OFF: Report given to DEBRA PIPER.
--- NOTE | 2018-05-19 13:10 | NUR ---
NURSE NOTES: Report received from PLACIDO Dill. Patient AOx4 in RA, denies SOB or pain. IV patent, flushed and SL. Patient's dressing changed today per CRN. Dressing intact. Bed on lowest position, brakes engaged, side rails upx2. Call light within easy reach.
--- NOTE | 2018-05-19 15:54 | Cardiac Electrophysiology PN ---
Assessment/Plan Assessment/Plan 1. Paroxysmal atrial fibrillation. Post op EKG showed SR with PAC's. Now has junctional tach Increase Cardizem CD 180 mg daily as well as Lovenox 2. Hypertension. Continue Cardizem and Avapro 300 mg daily. 3. Status post right knee arthroplasty. 4. Benign prostatic hypertrophy, on Proscar. 5. COPD, on Symbicort. Subjective Subjective No CP or SOB. Remained in SR with no atrial fib. But had episodes of junctional tach. Objective Last 24 Hour Vital Signs Date Time Temp Pulse Resp B/P (MAP) Pulse Ox O2 Delivery O2 Flow Rate FiO2 05/19/18 12:00 96 05/19/18 12:00 98.0 103 20 132/75 (94) 99 05/19/18 09:00 Room Air 05/19/18 08:52 94 20 97 Room Air 21 05/19/18 08:52 90 20 98 Room Air 21 05/19/18 08:06 90 135/63 05/19/18 08:05 135/63 05/19/18 07:56 87 05/19/18 07:38 98.9 90 19 135/63 (87) 97 05/19/18 04:00 98.9 81 19 130/68 (88) 97 05/19/18 04:00 82 05/19/18 00:00 98.6 81 19 141/64 (89) 97 05/19/18 00:00 83 05/18/18 21:00 Room Air 05/18/18 20:00 80 05/18/18 20:00 98.8 87 19 143/67 (92) 97 05/18/18 19:42 91 18 97 Room Air 21 05/18/18 19:39 91 18 97 Room Air 21 05/18/18 16:00 82 05/18/18 16:00 97.4 70 18 130/69 (89) 98 Intake and Output 05/18/18 05/19/18 19:00 07:00 Intake Total 835 ml 1200 ml Output Total 1200 ml Balance 835 ml 0 ml Intake Oral 760 ml 360 ml IV Total 75 ml 840 ml Output Urine Total 1200 ml # Voids 3 2 Laboratory Tests Test 05/19/18 06:21 White Blood Count 9.2 K/UL (4.8-10.8) Red Blood Count 3.04 M/UL (4.70-6.10) L Hemoglobin 9.7 G/DL (14.2-18.0) L Hematocrit 28.4 % (42.0-52.0) L Mean Corpuscular Volume 93 FL (80-99) Mean Corpuscular Hemoglobin 31.9 PG (27.0-31.0) H Mean Corpuscular Hemoglobin Concent 34.1 G/DL (32.0-36.0) Red Cell Distribution Width 12.0 % (11.6-14.8) Platelet Count 159 K/UL (150-450) Mean Platelet Volume 6.1 FL (6.5-10.1) L Neutrophils (%) (Auto) 79.1 % (45.0-75.0) H Lymphocytes (%) (Auto) 9.6 % (20.0-45.0) L Monocytes (%) (Auto) 9.8 % (1.0-10.0) Eosinophils (%) (Auto) 1.2 % (0.0-3.0) Basophils (%) (Auto) 0.3 % (0.0-2.0) Microbiology Date/Time Source Procedure Growth Status 05/17/18 05:55 Nasal Nares MRSA Culture - Final NO METHICILLIN RESISTANT STAPH AUREUS... Complete Objective HEAD AND NECK: No JVD. LUNGS: Clear. CARDIOVASCULAR: Regular S1 and S2 with no gallop or murmur. ABDOMEN: Soft. EXTREMITIES: Status post right knee surgery. Jaylen Lind MD May 19, 2018 15:54
--- NOTE | 2018-05-19 19:40 | NUR ---
HAND-OFF: Report given to VERONIQUE Benitez. Patient awake, iron and colace given to Patient right now. Patient was resting after walking. Patient in stable condition.
--- NOTE | 2018-05-19 19:45 | NUR ---
NURSE NOTES: Received report from Pia PIPER. Patient was resting in the bed w.o any acute distress noted. Pt is on right Knee continues passive motion machine. Denies any pain at this moment. IV is not working. Will start new IV to continue IV fluids. Morning shift Primary nurse notified. Call light is within reach and bed is on the lowest position. Will continue to follow the plan of care.
[2018-05-19] MEDS: Tamsulosin 0.4mg cap ORAL SCH (20:58)
--- NOTE | 2018-05-19 22:00 | NUR ---
NURSE NOTES: New IV line started and restarted the IV fluids.
--- NOTE | 2018-05-19 22:18 | General Progress Note ---
Assessment/Plan Assessment/Plan sp knee surgery pafib ho asthma bradycardia hld pain control PT on monitor ed bed in sinus rhythme dw Dr Lind on lovenox./ consder changing to elliquis PT ambulate dvt and ulcer prophylaxis Subjective Allergies: Coded Allergies: ATORVASTATIN (Verified Allergy, Severe, 05/17/18) SKIN RASH AMLODIPINE (Verified Allergy, Mild, RASH, 06/18/09) Subjective pain controlled in knee no chest pain or sob Objective Last 24 Hour Vital Signs Date Time Temp Pulse Resp B/P (MAP) Pulse Ox O2 Delivery O2 Flow Rate FiO2 05/19/18 20:27 80 20 98 Room Air 21 05/19/18 20:24 78 20 98 Room Air 21 05/19/18 20:00 97 05/19/18 20:00 99.4 84 20 119/69 (86) 98 05/19/18 16:00 99.0 83 20 122/63 (82) 98 05/19/18 16:00 81 05/19/18 12:00 96 05/19/18 12:00 98.0 103 20 132/75 (94) 99 05/19/18 09:00 Room Air 05/19/18 08:52 94 20 97 Room Air 21 05/19/18 08:52 90 20 98 Room Air 21 05/19/18 08:06 90 135/63 05/19/18 08:05 135/63 05/19/18 07:56 87 05/19/18 07:38 98.9 90 19 135/63 (87) 97 05/19/18 04:00 98.9 81 19 130/68 (88) 97 05/19/18 04:00 82 05/19/18 00:00 98.6 81 19 141/64 (89) 97 05/19/18 00:00 83 Intake and Output 05/18/18 05/19/18 19:00 07:00 Intake Total 835 ml 1200 ml Output Total 1200 ml Balance 835 ml 0 ml Intake Oral 760 ml 360 ml IV Total 75 ml 840 ml Output Urine Total 1200 ml # Voids 3 2 Laboratory Tests 05/19/18 06:21: White Blood Count 9.2, Red Blood Count 3.04L, Hemoglobin 9.7L, Hematocrit 28.4L , Mean Corpuscular Volume 93, Mean Corpuscular Hemoglobin 31.9H, Mean Corpuscular Hemoglobin Concent 34.1, Red Cell Distribution Width 12.0, Platelet Count 159, Mean Platelet Volume 6.1L, Neutrophils (%) (Auto) 79.1H, Lymphocytes (%) (Auto) 9.6L, Monocytes (%) (Auto) 9.8, Eosinophils (%) (Auto) 1.2, Basophils (%) (Auto) 0.3 Height (Feet): 6 Height (Inches): 1.00 Weight (Pounds): 220 General Appearance: WD/WN, no apparent distress Neck: supple Cardiovascular: normal rate Respiratory/Chest: lungs clear Abdomen: soft Objective knee dressed, cleaen neurovascular intact Nikunj Saravia MD May 19, 2018 22:18
[2018-05-20 00:10] VITALS: BP 129/67
[2018-05-20] MEDS: D5 1/2NS w/KCl 20mEq 1,000 ML IV SCH (00:21)
[2018-05-20 04:00] VITALS: BP 133/68
--- NOTE | 2018-05-20 07:38 | NUR ---
NURSE NOTES: Received report from VERONIQUE Benitez. Patient in bed resting, patient SR with HR 83. Denies pain at this time. IV running at prescribed rate, IV site asymptomatic, patent, intact. Endorsed possible discharge for today 05/20/18. Dressing on right knee dry, intact. Bed in lowest position, side rails up x3, call light within reach. Will continue to monitor.
--- NOTE | 2018-05-20 07:39 | NUR ---
HAND-OFF: Report given to Ivis PIPER.
[2018-05-20 07:48] LABS: BASOPHILS % (AUTO) 0.9 % (0.0-2.0); EOSINOPHILS % (AUTO) 4.5 % (0.0-3.0); HEMATOCRIT 26.2 % (42.0-52.0); HEMOGLOBIN 8.9 G/DL (14.2-18.0); LYMPHOCYTES % (AUTO) 12.6 % (20.0-45.0); MEAN CORPUSCULAR VOLUME 94 FL (80-99); MONOCYTES % (AUTO) 9.8 % (1.0-10.0); NEUTROPHILS % (AUTO) 72.2 % (45.0-75.0); PLATELET COUNT 148 K/UL (150-450); RED BLOOD COUNT 2.79 M/UL (4.70-6.10); WHITE BLOOD COUNT 7.1 K/UL (4.8-10.8)
[2018-05-20 08:00] VITALS: BP 133/72
--- NOTE | 2018-05-20 08:22 | Orthopedic Progress Note ---
Orthopedic - Progress Note Subjective Symptoms: improved Objective Laboratory Tests Test 05/20/18 06:01 White Blood Count 7.1 K/UL (4.8-10.8) Red Blood Count 2.79 M/UL (4.70-6.10) L Hemoglobin 8.9 G/DL (14.2-18.0) L Hematocrit 26.2 % (42.0-52.0) L Mean Corpuscular Volume 94 FL (80-99) Mean Corpuscular Hemoglobin 31.7 PG (27.0-31.0) H Mean Corpuscular Hemoglobin Concent 33.9 G/DL (32.0-36.0) Red Cell Distribution Width 12.0 % (11.6-14.8) Platelet Count 148 K/UL (150-450) L Mean Platelet Volume 6.4 FL (6.5-10.1) L Neutrophils (%) (Auto) 72.2 % (45.0-75.0) Lymphocytes (%) (Auto) 12.6 % (20.0-45.0) L Monocytes (%) (Auto) 9.8 % (1.0-10.0) Eosinophils (%) (Auto) 4.5 % (0.0-3.0) H Basophils (%) (Auto) 0.9 % (0.0-2.0) Last 24 Hour Vital Signs Date Time Temp Pulse Resp B/P (MAP) Pulse Ox O2 Delivery O2 Flow Rate FiO2 05/20/18 04:00 83 05/20/18 04:00 99.4 88 20 133/68 (89) 96 05/20/18 00:10 99.5 87 20 129/67 (87) 96 05/20/18 00:00 83 05/19/18 21:00 99.5 87 20 129/67 (87) 96 05/19/18 21:00 Room Air 05/19/18 20:27 80 20 98 Room Air 21 05/19/18 20:24 78 20 98 Room Air 21 05/19/18 20:00 97 05/19/18 20:00 99.4 84 20 119/69 (86) 98 05/19/18 16:00 99.0 83 20 122/63 (82) 98 05/19/18 16:00 81 05/19/18 12:00 96 05/19/18 12:00 98.0 103 20 132/75 (94) 99 05/19/18 09:00 Room Air 05/19/18 08:52 94 20 97 Room Air 21 05/19/18 08:52 90 20 98 Room Air 21 Intake and Output 05/19/18 05/20/18 19:00 07:00 Intake Total 600 ml Balance 600 ml Intake Oral 600 ml # Voids 4 2 Laboratory Tests Test 05/20/18 06:01 White Blood Count 7.1 K/UL (4.8-10.8) Red Blood Count 2.79 M/UL (4.70-6.10) L Hemoglobin 8.9 G/DL (14.2-18.0) L Hematocrit 26.2 % (42.0-52.0) L Mean Corpuscular Volume 94 FL (80-99) Mean Corpuscular Hemoglobin 31.7 PG (27.0-31.0) H Mean Corpuscular Hemoglobin Concent 33.9 G/DL (32.0-36.0) Red Cell Distribution Width 12.0 % (11.6-14.8) Platelet Count 148 K/UL (150-450) L Mean Platelet Volume 6.4 FL (6.5-10.1) L Neutrophils (%) (Auto) 72.2 % (45.0-75.0) Lymphocytes (%) (Auto) 12.6 % (20.0-45.0) L Monocytes (%) (Auto) 9.8 % (1.0-10.0) Eosinophils (%) (Auto) 4.5 % (0.0-3.0) H Basophils (%) (Auto) 0.9 % (0.0-2.0) Wound: clean, dry, intact Drains: none Neuro Status: unchanged from pre-op Vascular Status: normal Assessment Post-op Diagnosis POD 2 Procedure Performed rt total knee arthroplasty Plan Plan: discharge to home - Stable for d/c per Ortho to home with services and DME if ok with Dr. Saravia and Dr. Lind. , other - Can resume home eliquis if prefered by Dr. Saravia and Dr. Lind. Pt already has rx for home pain meds Candida Diane May 20, 2018 08:22
--- NOTE | 2018-05-20 08:39 | NUR ---
CASE MANAGEMENT:REVIEW 05/20/18 SI: POD #2....S/P RT TOTAL KNEE ARTHROPLASTY EPISODES OF BRADYCARDIA...TRANSFERRED TO TELEMETRY 99.5 88 20 133/68 96% ON RA H/H-8.9/.2 IS: SYMBICORT INH BID CELEBREX PO QD CARDIZEM PO QD PROSCAR PO QD AVAPRO PO QD SINGULAIR PO QD LOVENOX SQ Q12 IVF@75/HR : NOW ON TELEMETRY DCP: PATIENT IS FROM HOME PLAN: CONTINUOUS CARDIAC MONITORING CARDIAC CONSULT
[2018-05-20] MEDS: Irbesartan 150mg tablet ORAL SCH (09:30)
[2018-05-20 09:31] VITALS: BP 133/72
[2018-05-20] MEDS: Montelukast 10mg tablet ORAL SCH (09:31)
[2018-05-20] MEDS: dilTIAZem HCl CD 120mg cap ORAL SCH (09:31)
[2018-05-20] MEDS: Docusate 100mg cap ORAL SCH (09:31)
[2018-05-20] MEDS: celeBREX 200mg Cap **SURGERY PATIENTS ONLY ORAL SCH ×2 (09:32→10:02)
[2018-05-20] MEDS: Enoxaparin 30mg Inj SUBQ SCH (09:33)
--- NOTE | 2018-05-20 10:32 | NUR ---
NURSE NOTES: Patient's belongings are checked with patient. Missing one of glasses. Per patient, it is okay and stated "it is not prescription glasses anyway".
--- NOTE | 2018-05-20 10:49 | NUR ---
*-* DISCHARGE PLANNING *-* PATIENT HAS BEEN REFERRED TO: [facility] P:[phone] F:[phone]
--- NOTE | 2018-05-20 11:50 | NUR ---
NURSE NOTES: Patient discharged to home with [facility] per Dr[facility] Diane. [facility], cardiac surgeon returned to health information technician. Patient's spouse taking patient home via personal vehicle in stable condition. Patient has all belongings except one glasses, but per patient it is okay and signed the paper.
--- NOTE | 2018-05-20 12:08 | Cardiac Electrophysiology PN ---
Assessment/Plan Assessment/Plan 1. Paroxysmal atrial fibrillation. Post op EKG showed SR with PAC's. Had junctional tach On Cardizem CD 180 mg daily as well as Lovenox 2. Hypertension. Continue Cardizem and Avapro 300 mg daily. 3. Status post right knee arthroplasty. 4. Benign prostatic hypertrophy, on Proscar. 5. COPD, on Symbicort. OK to DC Subjective Subjective No CP or SOB. Remained in SR with no atrial fib.. Objective Last 24 Hour Vital Signs Date Time Temp Pulse Resp B/P (MAP) Pulse Ox O2 Delivery O2 Flow Rate FiO2 05/20/18 09:31 84 133/72 05/20/18 09:30 133/72 05/20/18 09:00 90 18 98 Room Air 21 05/20/18 09:00 Room Air 05/20/18 09:00 90 20 97 Room Air 21 05/20/18 08:00 98.4 84 20 133/72 (92) 99 05/20/18 04:00 83 05/20/18 04:00 99.4 88 20 133/68 (89) 96 05/20/18 00:10 99.5 87 20 129/67 (87) 96 05/20/18 00:00 83 05/19/18 21:00 99.5 87 20 129/67 (87) 96 05/19/18 21:00 Room Air 05/19/18 20:27 80 20 98 Room Air 21 05/19/18 20:24 78 20 98 Room Air 21 05/19/18 20:00 97 05/19/18 20:00 99.4 84 20 119/69 (86) 98 05/19/18 16:00 99.0 83 20 122/63 (82) 98 05/19/18 16:00 81 Intake and Output 05/19/18 05/20/18 18:59 06:59 Intake Total 675 ml Balance 675 ml Intake Oral 600 ml IV Total 75 ml # Voids 4 2 Laboratory Tests Test 05/20/18 06:01 White Blood Count 7.1 K/UL (4.8-10.8) Red Blood Count 2.79 M/UL (4.70-6.10) L Hemoglobin 8.9 G/DL (14.2-18.0) L Hematocrit 26.2 % (42.0-52.0) L Mean Corpuscular Volume 94 FL (80-99) Mean Corpuscular Hemoglobin 31.7 PG (27.0-31.0) H Mean Corpuscular Hemoglobin Concent 33.9 G/DL (32.0-36.0) Red Cell Distribution Width 12.0 % (11.6-14.8) Platelet Count 148 K/UL (150-450) L Mean Platelet Volume 6.4 FL (6.5-10.1) L Neutrophils (%) (Auto) 72.2 % (45.0-75.0) Lymphocytes (%) (Auto) 12.6 % (20.0-45.0) L Monocytes (%) (Auto) 9.8 % (1.0-10.0) Eosinophils (%) (Auto) 4.5 % (0.0-3.0) H Basophils (%) (Auto) 0.9 % (0.0-2.0) Objective HEAD AND NECK: No JVD. LUNGS: Clear. CARDIOVASCULAR: Regular S1 and S2 with no gallop or murmur. ABDOMEN: Soft. EXTREMITIES: Status post right knee surgery. Jaylen Lind MD May 20, 2018 12:08
[2018-05-20] MEDS ORDERED: NS 275ml ONE (12:19)
[2018-05-20] MEDS ORDERED: Tubing IV Secondary IV ONE (12:19)
--- NOTE | 2018-05-23 15:08 | Discharge Summary ---
Discharge Summary Discharge Summary _ Family DATE OF ADMISSION: 05/17/2018 DATE OF DISCHARGE: 05/20/2018 DISCHARGED BY: Dr. Enriquez REASON FOR ADMISSION: 82 years old male with past medical history of hypertension, paroxysmal atrial fibrillation, hyperlipidemia, asthma, BPH, previous knee surgery in 2009 , end stage arthritis right knee, T11-T12 laminectomy secondary to diffuse disc bulge, history of CVA, admitted by orthopedic surgeon for right knee end stage arthritis . Patient failed nonoperative management and subsequently was admitted for elective surgery. CONSULTANTS: branch mechanic Dr. Smith internal medicine Dr. Saravia [facility] COURSE: Patient subsequently undergone total right knee arthropathy. Postoperatively patient was bradycardic with heart rate in 40s , but asymptomatic. No chest pain. No shortness of breath. No dizziness. Patient admitted to telemetry floor postoperatively. Court Administrator closely followed. DVT prophylaxis with Lovenox started. Pain management was addressed. Patient started to work with physical therapy. Neurovascular status closely monitored, remained stable. Incision clean,dry and intact. Echocardiogram revealed preserved ejection fraction 60-65% with mild left ventricular hypertrophy. No wall motion abnormalities noted. Right ventricular systolic pressure of 40 consistent with mild pulmonary hypertension. EKG showed sinus rhythm with premature atrial complexes. Patient also had junctional tachycardia. Patient started on Cardizem extended release 180 mg daily and Avapro. Blood pressure was controlled with current regimen. Heart rate stabilized and remained stable till discharge . Avoid SA and AV blockers. GI prophylaxis provided. Proscar was continued. Supplemental oxygen provided as needed to keep pulse oximetry above 92%. Pulmonary toilet was on standby as needed. continued. Symbicort inhaler and Singulair continued. Pulse oximetry was stable on room air. Patient clinically stabilized. Pain controlled, incision clean dry and intact , hemodynamically stable, heart rate stabilized ( sinus rhythm on telemetry), tolerated diet , ambulated with physical therapy , voided freely. Discharge instructions provided upon discharge. Patient was discharged home with home health services to follow. 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 DISCHARGE INSTRUCTIONS: Patient was discharged home with home health services. Follow up with primary care provider and surgeon as outpatient I have been assigned to dictate discharge summary for this account. I was not involved in the patient's management. Conchis Morrow NP May 23, 2018 15:08
== END 2018-05-20 12:20 | disposition home health service (06) | DRG 470 ==
LOC: SDSOVERFLO 05:18 → 3E 11:32 → 2E 18:30
PROC: 0SRC0J9 Replacement of Right Knee Joint with Synthetic Substitute, Cemented, Open Approach (ICD-10-PCS; principal; 2018-05-17 07:30)
DX: M17.11 Unilateral primary osteoarthritis, right knee (principal); I10 Essential (primary) hypertension; Z96.652 Presence of left artificial knee joint; E78.5 Hyperlipidemia, unspecified; N40.0 Benign prostatic hyperplasia without lower urinary tract symptoms; J44.9 Chronic obstructive pulmonary disease, unspecified; I48.0 Paroxysmal atrial fibrillation; Z79.01 Long term (current) use of anticoagulants; R00.1 Bradycardia, unspecified
CPT/HCPCS: 36415; 80053; 85025; 85610; 86850; 86900; 86901; 86920; 87081; 93005; 93306; 94003; 94150; 94640; J2250